=== PATIENT | female | born 1970 | race Caucasian/White ===

== ENCOUNTER 2021-11-11 22:11 | Emergency (ER) | payer MEDICAID ==
[~2021-11-11] VITALS: Ht 162.6 cm; Wt 99.8 kg
[2021-11-11 22:20] VITALS: BP 165/76
--- NOTE | 2021-11-11 22:20 | NUR ---
RECEIVED IN BED 2, BIBA, WITH C/O BODY ACHES, FEVER AND CHILLS X 3 DAYS. 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
--- NOTE | 2021-11-11 23:07 | NUR ---
DR VARMA AT BEDSIDE FOR EXAM
[2021-11-11] MEDS ORDERED: diphenhydrAMINE 50 MG/ML VIAL IVP ONE (23:25)
[2021-11-11] MEDS ORDERED: NACL 0.9% 1,000 ML IV ONE (23:25)
[2021-11-11] MEDS ORDERED: METOCLOPRAMIDE 10 MG/2 ML INJ VIAL IVP ONE (23:25)
[2021-11-11] MEDS ORDERED: KETOROLAC 30 MG/ML VIAL IVP ONE (23:25)
[2021-11-11 23:40] LABS: BASOPHILS # (AUTO) 0.1 K/uL (0.00-0.22); BASOPHILS % (AUTO) 0.8 % (0.0-2.0); EOSINOPHILS # (AUTO) 0.2 K/uL (0-0.4); EOSINOPHILS % (AUTO) 2.4 % (0.0-4.0); HEMATOCRIT 37.3 % (36-48); HEMOGLOBIN 12.4 g/dL (12.0-16.0); LYMPHOCYTES # (AUTO) 1.7 K/uL (2.5-16.5); LYMPHOCYTES % (AUTO) 24.1 % (20.5-51.1); MEAN CORPUSCULAR HEMOGLOBIN 27 pg (27-31); MEAN CORPUSCULAR HGB CONC 33 g/dL (33-37); MEAN CORPUSCULAR VOLUME 82.2 fL (80-94); MONOCYTES # (AUTO) 0.6 K/uL (0.8-1.0); MONOCYTES % (AUTO) 8.9 % (1.7-9.3); NEUTROPHILS # (AUTO) 4.4 K/uL (1.8-7.7); NEUTROPHILS % (AUTO) 63.8 % (42.2-75.2); PLATELET COUNT (AUTO) 334 K/uL (140-450); RED BLOOD CELL COUNT(AUTO) 4.53 MIL/uL (4.20-5.40); RED CELL DISTRIBUTION WIDTH 15.1 % (11.6-13.7); WHITE BLOOD COUNT (AUTO) 6.9 K/uL (4.8-10.8)
[2021-11-12 00:09] LABS: ALBUMIN 3.5 g/dL (3.4-5.0); ANION GAP 8.7 (8-16); ASPARTATE AMINOTRANSFERASE 18 U/L (15-37); CARBON DIOXIDE 29.2 mmol/L (21-32); CHLORIDE 105 mmol/L (98-107); CREATININE 0.7 mg/dL (0.6-1.3); GFR ARICAN-AMERICAN 113 mL/min (>90); GLUCOSE 108 mg/dL (74-106); POTASSIUM 3.9 mmol/L (3.5-5.1); SODIUM SERUM 139 mmol/L (136-145); TOTAL BILIRUBIN 0.3 mg/dL (0.0-1.0); UREA NITROGEN, BLOOD 13 mg/dL (7-18)
--- NOTE | 2021-11-12 00:25 | NUR ---
AMBULATED TO BR WITH STEADY GAIT
--- NOTE | 2021-11-12 00:32 | NUR ---
SWABS AND UA TO LAB
[2021-11-12 00:36] LABS: APPEARANCE,URINE SL CLOUDY (CLEAR); BILIRUBIN,URINE NEGATIVE (NEGATIVE); BLOOD, URINE NEGATIVE (NEGATIVE); COLOR,URINE YELLOW (YELLOW); LEUKOCYTE ESTERASE ,URINE TRACE (NEGATIVE); NITRITE, URINE POSITIVE (NEGATIVE); PH,URINE 6.5 (5.0-9.0); UGLUCOSE NEGATIVE (NEGATIVE)
[2021-11-12 00:51] LABS: RBC,URINE 0-5 /HPF (0-5)
[2021-11-12] MEDS ORDERED: cefTRIAXone 1,000 MG VIAL ONE (01:09)
[2021-11-12] MEDS ORDERED: CEPH-588 PO (01:25)
--- NOTE | 2021-11-12 02:20 | NUR ---
PT PULLED IV OUT. IV ESTABLISHED RIGHT A/C
[2021-11-12 03:20] VITALS: BP 148/72
[2021-11-13] MEDS ORDERED: TAM75 PO (01:34)
[2021-11-13] MEDS ORDERED: NAPR-54 PO (01:34)
== END 2021-11-12 03:20 | disposition home or self-care (01) ==
LOC: MED 22:11
DX: N39.0 Urinary tract infection, site not specified (principal); Z20.822 Contact with and (suspected) exposure to COVID-19; B34.9 Viral infection, unspecified; R10.9 Unspecified abdominal pain; G43.909 Migraine, unspecified, not intractable, without status migrainosus
CPT/HCPCS: 36415; 71045; 80053; 81001; 84484; 85025; 87086; 87426; 87804; 93005; 96361; 96365; 96375; 99285; J0696; J1200; J1885; J2765; J7030; Q0092

== ENCOUNTER 2021-11-12 20:01 | Emergency (ER) | payer MEDICAID ==
[~2021-11-12] VITALS: Ht 152.4 cm; Wt 90.7 kg
[2021-11-12 20:01] VITALS: BP 171/95
[~2021-11-12 20:01] MED LIST: CEPH-588 PO
--- NOTE | 2021-11-12 20:04 | NUR ---
TO [facility] VIA WHEEL CHAIR
[2021-11-12] MEDS ORDERED: KETOROLAC 60 MG/2 ML VIAL IM ONE (21:00)
--- NOTE | 2021-11-12 21:05 | NUR ---
MEDICATED PER ERM[facility] ORDER.PATIENT TOLERATED WELL.
--- NOTE | 2021-11-12 22:26 | NUR ---
ER MD AT BEDSIDE EXAMINING PT
[2021-11-12] MEDS ORDERED: MORPHINE SULFATE 4 MG/ML SYR IM ONE (22:30)
--- NOTE | 2021-11-12 22:36 | NUR ---
51 Y/O FEMALE BIBA WITH C/O LOW BACK PAIN, NO TRAUMA NOR INJURY, HEADACHES, SEEN IN ER YESTERDAY WITH KEFLEX. PT STATES HER HEADACHE STARTS IN HER EYES AND RADIATES TO HER FOREHEAD. NO SENSITIVITY TO LIGHT OR NECK PAIN. A/OX4, GCS-15; AMBULATORY WITH ASSISTANCE; UNLABORED BREATHING. HX: SCOLIOSIS, STOMACH ULCERS, HTN, ASTHMA ALL: CODEINE MEDS: ALBUTEROL
[2021-11-12] MEDS ORDERED: ACETAMINOPHEN EXTRA STRENGTH 500 MG TAB PO ONE (22:40)
--- NOTE | 2021-11-12 23:30 | NUR ---
pt returned from ct
[2021-11-13] MEDS ORDERED: METOCLOPRAMIDE 10 MG/2 ML INJ VIAL IVP ONE
[2021-11-13] MEDS ORDERED: NACL 0.9% 1,000 ML IV ONE
[2021-11-13] MEDS ORDERED: diphenhydrAMINE 50 MG/ML VIAL IVP ONE
[2021-11-13] MEDS ORDERED: TAM75 PO (01:34)
[2021-11-13] MEDS ORDERED: NAPR-54 PO (01:34)
[2021-11-13 01:57] VITALS: BP 164/91
== END 2021-11-13 01:57 | disposition home or self-care (01) ==
LOC: MED 20:01
DX: J10.1 Influenza due to other identified influenza virus with other respiratory manifestations (principal); R51.9 Headache, unspecified; Z79.1 Long term (current) use of non-steroidal anti-inflammatories (NSAID); Z79.899 Other long term (current) drug therapy; Z79.2 Long term (current) use of antibiotics; Z88.5 Allergy status to narcotic agent
CPT/HCPCS: 70450; 81002; 96361; 96372; 96374; 96375; 99285; J1200; J1885; J2270; J2765; J7030